=== PATIENT | female | born 1965 | race Caucasian/White ===

== ENCOUNTER 2017-04-18 21:18 | Emergency (ER) | payer SELFPAY ==
[2017-04-18] MEDS ORDERED: BUPIVACAINE 0.25% 50 ML VIAL. (21:33)
[2017-04-18] MEDS: BUPIVACAINE MPF 0.25% 10 ML VIAL. IJ (21:36)
[2017-04-18] MEDS ORDERED: diphenhydrAMINE HCL 25 MG CAPSULE PO (22:00)
== END 2017-04-18 22:11 | disposition home or self-care (01) ==
LOC: ER 21:18
DX: S02.5XXA Fracture of tooth (traumatic), initial encounter for closed fracture (principal); E11.9 Type 2 diabetes mellitus without complications; E78.00 Pure hypercholesterolemia, unspecified; G89.29 Other chronic pain; I10 Essential (primary) hypertension; Z90.710 Acquired absence of both cervix and uterus; Z88.1 Allergy status to other antibiotic agents; Z88.6 Allergy status to analgesic agent; Z88.7 Allergy status to serum and vaccine; Z91.041 Radiographic dye allergy status; Z88.8 Allergy status to other drugs, medicaments and biological substances; X58.XXXA Exposure to other specified factors, initial encounter; Y93.89 Activity, other specified; Y92.89 Other specified places as the place of occurrence of the external cause; Y99.8 Other external cause status
CPT/HCPCS: 64400; 99284-25; J3490

== ENCOUNTER 2018-03-27 10:39 | Emergency (ER) | payer SELFPAY ==
[~2018-03-27] VITALS: Ht 167.6 cm; Wt 81.6 kg
[~2018-03-27 10:39] MED LIST: CLIN300C8 PO; HYDR-3164 PO; OXYC1TAB15 PO
--- NOTE | 2018-03-27 13:08 | PHYS DOC ---
Past Medical History Past Medical History: Diabetes-Type II, High Cholesterol Additional Past Medical Histor: chronic back pain Past Surgical History: Hysterectomy, Other Additional Past Surgical Histo: ORAL RECONSTRUCTION FOR PALATE Alcohol Use: Rarely Drug Use: None Adult General Chief Complaint Chief Complaint: DENTAL PROBLEM HPI HPI 53-year-old female presents to ER via POV with complaints of right lower dental pain with facial swelling which started yesterday. She reports history of diabetes and states her blood sugar has been reading high on her glucometer. Patient states she has had polydipsia and polyuria. Patient denies any vomiting episodes, fever, chest pain, or palpitations. Due to financial issues she has been unable to get her medications or see a doctor. She reports she does have insulin but has been out of her metformin. Review of Systems Review of Systems Constitutional: Denies fever or chills [] Eyes: Denies change in visual acuity, redness, or eye pain [] HENT: Denies nasal congestion or sore throat. Reports rt lower dental pain w/ gum and facial swelling- denies difficulty swallowing Respiratory: Denies cough or shortness of breath [] Cardiovascular: Denies CP/palpitations GI: Denies abdominal pain, nausea, vomiting, bloody stools or diarrhea [] : Denies dysuria or hematuria [] Musculoskeletal: Denies back/neck pain or joint pain [] Integument: Denies rash or skin lesions [] Neurologic: Denies headache, focal weakness or sensory changes [] Endocrine: Reports polyuria or polydipsia [] All other systems were reviewed and found to be within normal limits, except as documented in this note. Current Medications Current Medications Current Medications Medications (Trade) Dose Ordered Sig/Jaleel Start Time Stop Time Status Last Admin Dose Admin Acetaminophen/ Hydrocodone Bitart (Lortab 5/325) 1 tab 1X ONCE 03/27/18 14:30 03/27/18 14:31 DC 03/27/18 15:08 1 TAB Ceftriaxone Sodium (Rocephin) 1 gm 1X ONCE 03/27/18 15:30 03/27/18 15:32 DC Insulin Human Regular (HumuLIN R VIAL) 10 unit 1X ONCE 03/27/18 14:00 03/27/18 14:05 DC 03/27/18 15:09 10 UNIT Sodium Chloride 1,000 ml @ 1,000 mls/hr 1X ONCE 03/27/18 15:15 03/27/18 16:14 DC 03/27/18 15:19 1,000 MLS/HR Allergies Allergies Allergies Coded Allergies Type Severity Reaction Last Updated Verified amoxicillin Allergy Intermediate 04/18/17 Yes aspirin Allergy Intermediate 04/21/16 Yes hepatitis B virus vaccine Allergy Intermediate 04/18/17 Yes pseudoephedrine Allergy Intermediate 04/18/17 Yes yellow dye Allergy Intermediate 04/18/17 Yes Physical Exam Physical Exam Constitutional: Well developed, well nourished, no acute distress, non-toxic appearance. [] HENT: Normocephalic, atraumatic, bilateral ears normal, oropharynx moist- multiple teeth have been extracted- none recently. Pt has multiple broken teeth. Rt side front gum swelling/erythema with swelling surrounding 2 broken teeth- no abscess. Lower palate soft with no palp. abscess. Canker sore rt lower gum line- no bleeding. Rt lower facial swelling along rt lower jaw- no crepitus or popping in jaw with opening/closing. Pt is able to fully open mouth. Clear speech. No pharyngeal swelling/erythema or difficulty swallowing. No gross adenopathy. Nose normal. [] Eyes: 3mm PERRLA, no nystagmus, conjunctiva normal, no discharge. [] Neck: Normal range of motion, no tenderness, supple, no stridor. [] Cardiovascular:Heart rate regular rhythm, no murmur [] Lungs & Thorax: Bilateral breath sounds clear to auscultation. Resp. equal/ nonlabored Abdomen: Bowel sounds normal, soft, no tenderness Skin: Warm, dry, no erythema, no rash. [] Back: No tenderness, no CVA tenderness. [] Extremities: No tenderness, no cyanosis, no clubbing, ROM intact, no edema. [] Neurologic: Alert and oriented X 3, normal motor function, normal sensory function, no focal deficits noted. [] Psychologic: Affect normal, judgement normal, mood normal. [] Current Patient Data Vital Signs Vital Signs Date Time Temp Pulse Resp B/P (MAP) Pulse Ox O2 Delivery O2 Flow Rate FiO2 03/27/18 16:30 82 20 149/88 (108) 99 03/27/18 15:08 Room Air 03/27/18 12:46 97.7 97.7 Lab Values Laboratory Tests Test 03/27/18 13:31 03/27/18 13:34 03/27/18 14:05 03/27/18 14:25 Glucose (Fingerstick) 539 mg/dL (70-99) *H Urine Collection Type Unknown Urine Color Yellow Urine Clarity Clear Urine pH 5.5 Urine Specific [place] >=1.030 Urine Protein Negative mg/dL (NEG-TRACE) Urine Glucose (UA) >=1000 mg/dL (NEG) Urine Ketones (Stick) 15 mg/dL (NEG) Urine Blood Negative (NEG) Urine Nitrite Negative (NEG) Urine Bilirubin Negative (NEG) Urine Urobilinogen Dipstick 0.2 mg/dL (0.2 mg/dL) Urine Leukocyte Esterase Negative (NEG) Urine RBC 0 /HPF (0-2) Urine WBC 0 /HPF (0-4) Urine Squamous Epithelial Cells Few /LPF Urine Bacteria Few /HPF (0-FEW) Urine Yeast Present /HPF White Blood Count 12.0 x10^3/uL (4.0-11.0) H Red Blood Count 4.77 x10^6/uL (3.50-5.40) Hemoglobin 15.1 g/dL (12.0-15.5) Hematocrit 42.9 % (36.0-47.0) Mean Corpuscular Volume 90 fL (79-100) Mean Corpuscular Hemoglobin 32 pg (25-35) Mean Corpuscular Hemoglobin Concent 35 g/dL (31-37) Red Cell Distribution Width 12.5 % (11.5-14.5) Platelet Count 460 x10^3/uL (140-400) H Neutrophils (%) (Auto) 74 % (31-73) H Lymphocytes (%) (Auto) 18 % (24-48) L Monocytes (%) (Auto) 6 % (0-9) Eosinophils (%) (Auto) 1 % (0-3) Basophils (%) (Auto) 1 % (0-3) Neutrophils # (Auto) 8.9 x10^3uL (1.8-7.7) H Lymphocytes # (Auto) 2.2 x10^3/uL (1.0-4.8) Monocytes # (Auto) 0.7 x10^3/uL (0.0-1.1) Eosinophils # (Auto) 0.1 x10^3/uL (0.0-0.7) Basophils # (Auto) 0.1 x10^3/uL (0.0-0.2) Sodium Level 132 mmol/L (136-145) L Potassium Level 4.3 mmol/L (3.5-5.1) Chloride Level 94 mmol/L (98-107) L Carbon Dioxide Level 27 mmol/L (21-32) Anion Gap 11 (6-14) Blood Urea Nitrogen 15 mg/dL (7-20) Creatinine 1.0 mg/dL (0.6-1.0) Estimated GFR (Cockcroft-Gault) 58.5 Glucose Level 534 mg/dL (70-99) *H Calcium Level 10.1 mg/dL (8.5-10.1) Test 03/27/18 15:24 03/27/18 16:20 Glucose (Fingerstick) 399 mg/dL (70-99) H 333 mg/dL (70-99) H Laboratory Tests 03/27/18 14:05 Laboratory Tests 03/27/18 14:25 EKG EKG [] Radiology/Procedures Radiology/Procedures [] Course & Med Decision Making Course & Med Decision Making Pertinent Labs and Imaging studies reviewed. (See chart for details) Patient was evaluated in the ER for complaints of right lower dental pain with facial swelling. Patient was afebrile. Patient reported during initial exam that her blood sugars have been reading high at home and she has been out of her metformin. Patient was found to have Accu-Chek of 539 therefore labs and treatments were provided while in the ER. 1600: Last check blood sugar was 399 patient receiving second liter of IV fluids. Patient was evaluated in the ER for right lower dental pain with facial swelling and was found to have blood sugar 539 on initial Accu-Chek. Patient had labs drawn showing blood glucose 534; WBCs 12.0 no bands; anion gap 11 with UA showing 15 ketones. Patient reports following fluids and IV insulin she is feeling much better than at time of arrival. Patient remains nontoxic in appearance and in no visible distress at this time. Discussed importance of maintenance of her diabetes as patient had been in ICU last month for DKA. Will provide community clinic and physician information with discharge paperwork area will provide prescription for clindamycin and [place] tablets for pain. Patient asked for prescription for metformin as she has been out of February. Patient takes 1000 mg twice a day of the metformin- will provide her with Rx. Education provided on s&s to return to ER for and discharge instructions were discussed. Pt's case and plan of care was discussed with Dr. Kinney. Silvano Disclaimer Silvano Disclaimer This electronic medical record was generated, in whole or in part, using a voice recognition dictation system. Departure Departure Impression: Primary Impression: Dental infection Additional Impression: Hyperglycemia Disposition: HOME, SELF-CARE Condition: STABLE Referrals: JOE DELGADO MD (PCP) Patient Instructions: Dental Caries, Hyperglycemia Additional Instructions: Drink plenty of fluids. Closely monitor your blood sugar and keep a diary. It is important for you to follow-up with her primary care physician for ongoing care and further follow-up on your diabetes. You will need to follow-up with a dentist for further care regarding your dental infection. Scripts Metformin Hcl (METFORMIN HCL) 500 Mg Tablet 1000 MG PO BIDWMEALS for ANTI-DIABETIC, #40 TAB 0 Refills Prov: KIMBER PRIEST APRN 03/27/18 Clindamycin Hcl (CLINDAMYCIN HCL) 150 Mg Capsule 450 MG PO TID for 10 Days, #90 CAP 0 Refills Prov: KIMBER PRIEST APRN 03/27/18 Hydrocodone/Apap 5-325 (NORCO 5-325 TABLET) 1 Each Tablet 1 TAB PO PRN Q6HRS PRN for PAIN, #6 TAB 0 Refills Prov: KIMBER PRIEST APRN 03/27/18 Problem Qualifiers KIMBER PRIEST APRN Mar 27, 2018 13:08
[2018-03-27] MEDS ORDERED: INSULIN REGULAR 100 UNIT/ML 3ML VIAL. IV ONE (14:00)
[2018-03-27] MEDS ORDERED: IV NORMAL SALINE 1000ML BAG 1,000 ML IV ONE ×2 (14:00→15:15)
[2018-03-27 14:04] LABS: BILIRUBIN,URINE NEGATIVE (NEG); CLARITY,URINE CLEAR; COLOR,URINE YELLOW; NITRITE,URINE NEGATIVE (NEG); PH,URINE 5.5; PROTEIN,URINE NEGATIVE (NEG-TRACE); UROBILINOGEN,URINE 0.2 mg/dL (0.2 mg/dL)
[2018-03-27 14:13] LABS: BASO # 0.1 x10^3/uL (0.0-0.2); BASO % 1 % (0-3); EOS # 0.1 x10^3/uL (0.0-0.7); EOS % 1 % (0-3); HEMATOCRIT 42.9 % (36.0-47.0); HEMOGLOBIN 15.1 g/dL (12.0-15.5); LYMPH # 2.2 x10^3/uL (1.0-4.8); LYMPH % 18 % (24-48); MEAN CORPUSCULAR HEMOGLOBIN 32 pg (25-35); MEAN CORPUSCULAR HGB CONC 35 g/dL (31-37); MEAN CORPUSCULAR VOLUME 90 fL (79-100); MONO # 0.7 x10^3/uL (0.0-1.1); MONO % 6 % (0-9); NEUT # 8.9 x10^3uL (1.8-7.7); NEUT % 74 % (31-73); PLATELET COUNT 460 x10^3/uL (140-400); RED BLOOD COUNT 4.77 x10^6/uL (3.50-5.40); RED CELL DISTRIBUTION WIDTH 12.5 % (11.5-14.5)
[2018-03-27 14:20] LABS: BACTERIA,URINE FEW /HPF (0-FEW); RBC,URINE 0 /HPF (0-2); SQUAMOUS EPITHELIAL CELL,UR FEW /LPF; WBC,URINE 0 /HPF (0-4); YEAST,URINE PRESENT /HPF
[2018-03-27] MEDS ORDERED: HYDROcodone/APAP 5/325MG 1 TAB TABLET PO ONE (14:30)
[2018-03-27 14:53] LABS: CALCIUM 10.1 mg/dL (8.5-10.1); GFR 58.5; POTASSIUM 4.3 mmol/L (3.5-5.1)
[2018-03-27] MEDS ORDERED: cefTRIAXone IV Push 1 GM VIAL. IVP ONE (15:30)
[2018-03-27] MEDS ORDERED: HYDR-3164 PO (16:12)
[2018-03-27] MEDS ORDERED: METF500T16 PO (16:12)
[2018-03-27] MEDS ORDERED: CLIN150C14 PO (16:12)
[2018-03-27 16:30] VITALS: BP 149/88
== END 2018-03-27 16:32 | disposition home or self-care (01) ==
LOC: ER 10:39
DX: K04.7 Periapical abscess without sinus (principal); E11.65 Type 2 diabetes mellitus with hyperglycemia; E78.00 Pure hypercholesterolemia, unspecified; G89.29 Other chronic pain; M54.89 Other dorsalgia; Z88.1 Allergy status to other antibiotic agents; Z88.6 Allergy status to analgesic agent; Z88.8 Allergy status to other drugs, medicaments and biological substances; Z91.041 Radiographic dye allergy status
CPT/HCPCS: 36415; 80048; 81001; 82962; 85025; 96361; 96374; 99283; J1815; J7030

== ENCOUNTER 2018-12-09 21:49 | Emergency (ER) | payer SELFPAY ==
[~2018-12-09] VITALS: Ht 167.6 cm; Wt 77.1 kg
[~2018-12-09 21:49] MED LIST changes: +CLIN150C14 PO; +METF500T16 PO
[2018-12-09 21:50] VITALS: BP 198/112
[2018-12-09] MEDS ORDERED: CLIN150C14 PO (22:19)
--- NOTE | 2018-12-09 22:24 | PHYS DOC ---
Past Medical History Past Medical History: Diabetes-Type II, High Cholesterol Additional Past Medical Histor: chronic back pain Past Surgical History: Hysterectomy, Other Additional Past Surgical Histo: ORAL RECONSTRUCTION FOR PALATE Alcohol Use: None Drug Use: None Adult General Chief Complaint Chief Complaint: DENTAL PROBLEM HPI HPI Patient is a 53 year old female who presents to the emergency department with c omplaints of bilateral lower dental pain with multiple infected dental caries. Patient states she took her prescription for clindamycin to [facility] today but was unable to afford it. She reports that she's been taking ibuprofen or naproxen as needed for the pain. She denies any fever, nausea, vomiting, cough, shortness of breath, wheezing, sore throat, ear pain, or neck pain. She denies any abdominal pain or other complaints. She currently rates her pain a 9 out of 10 on the pain scale, there are no alleviating or exacerbating factors.All other ROS is neg unless otherwise noted in HPI. Review of Systems Review of Systems See above Allergies Allergies Allergies Coded Allergies Type Severity Reaction Last Updated Verified amoxicillin Allergy Intermediate 04/18/17 Yes aspirin Allergy Intermediate 04/21/16 Yes hepatitis B virus vaccine Allergy Intermediate 04/18/17 Yes pseudoephedrine Allergy Intermediate 04/18/17 Yes yellow dye Allergy Intermediate 04/18/17 Yes Physical Exam Physical Exam Constitutional: Well developed, well nourished, no acute distress, non-toxic appearance. [] HENT: Normocephalic, atraumatic, bilateral external ears normal, oropharynx moist, no oral exudates, nose normal; diffuse lower dental decay with multiple broken teeth, no visible abscess.[] Eyes: PERRLA, EOMI, conjunctiva normal, no discharge. [] Neck: Normal range of motion, no tenderness, no stridor. [] Cardiovascular:Heart rate regular rhythm, no murmur [] Lungs & Thorax: Bilateral breath sounds clear to auscultation [] Skin: Warm, dry, no erythema, no rash. [] Back: No tenderness Extremities: No cyanosis, ROM intact, no edema. [] Neurologic: Alert and oriented X 3, no focal deficits noted. [] Psychologic: Affect normal, judgement normal, mood normal. [] Current Patient Data Vital Signs Vital Signs Date Time Temp Pulse Resp B/P (MAP) Pulse Ox O2 Delivery O2 Flow Rate FiO2 12/09/18 21:50 97.6 79 18 198/112 (140) 99 Room Air 97.6 EKG EKG [] Radiology/Procedures Radiology/Procedures [] Course & Med Decision Making Course & Med Decision Making Pertinent Labs and Imaging studies reviewed. (See chart for details) dx: Infected dental caries, dentalgia Patient was given 450 mg of clindamycin here in the emergency department. She was given information for did Rx and recommended the patient go fill the medication tomorrow at pressure chart for aware the co-pays less than $20. Continue taking 2 naproxen twice a day with food as needed for pain, do not take ibuprofen and naproxen at the same time. Follow-up with the dental list provided return to the ER symptoms worsen. Patient verbalized an understanding of home care, medications, follow-up, and return to ED instructions and was in agreement with the plan of care. [] Dragon Disclaimer Dragon Disclaimer This electronic medical record was generated, in whole or in part, using a voice recognition dictation system. Departure Departure Impression: Primary Impression: Dental infection Disposition: 01 HOME, SELF-CARE Condition: STABLE Referrals: JOE DELGADO MD (PCP) Patient Instructions: Dental Caries Additional Instructions: Fill prescription(s) and use as directed. Follow up with dentist using the referral list provided. Return to the ER if symptoms worsen. Scripts Clindamycin Hcl (CLINDAMYCIN HCL) 150 Mg Capsule 450 MG PO TID for 7 Days, #63 CAP 0 Refills Prov: JULIANA LINARES APRN 12/09/18 JULIANA LINARES APRN Dec 09, 2018 22:24
[2018-12-09] MEDS ORDERED: CLINDAMYCIN HCL 150 MG CAPSULE. PO ONE (23:00)
== END 2018-12-09 22:30 | disposition home or self-care (01) ==
LOC: ER 21:49
DX: K04.7 Periapical abscess without sinus (principal); E78.00 Pure hypercholesterolemia, unspecified; E11.9 Type 2 diabetes mellitus without complications; G89.29 Other chronic pain; Z88.1 Allergy status to other antibiotic agents; Z91.041 Radiographic dye allergy status; Z88.6 Allergy status to analgesic agent; Z88.8 Allergy status to other drugs, medicaments and biological substances; Z88.7 Allergy status to serum and vaccine
CPT/HCPCS: 99283

== ENCOUNTER 2019-04-11 20:45 | Emergency (ER) | payer SELFPAY ==
[~2019-04-11] VITALS: Ht 167.6 cm; Wt 73.5 kg
[~2019-04-11 20:45] MED LIST changes: +INSU100V8 SQ; +LACT1CAP19 PO; +LISI-130 PO; +LORA10TA65 PO; +RANI150C PO; +TRAM100T2 PO; +TRAZ-123 PO
[2019-04-11] MEDS ORDERED: INSULIN REGULAR 100 UNIT/ML 3ML VIAL. SQ ONE (21:15)
[2019-04-11] MEDS ORDERED: IV NORMAL SALINE 1000ML BAG 1,000 ML IV ONE ×2 (21:15)
[2019-04-11 21:22] LABS: BASO # 0.1 x10^3/uL (0.0-0.2); BASO % 1 % (0-3); EOS # 0.2 x10^3/uL (0.0-0.7); EOS % 2 % (0-3); HEMATOCRIT 40.3 % (36.0-47.0); HEMOGLOBIN 13.7 g/dL (12.0-15.5); LYMPH # 2.1 x10^3/uL (1.0-4.8); LYMPH % 25 % (24-48); MEAN CORPUSCULAR HEMOGLOBIN 30 pg (25-35); MEAN CORPUSCULAR HGB CONC 34 g/dL (31-37); MEAN CORPUSCULAR VOLUME 89 fL (79-100); MONO # 0.4 x10^3/uL (0.0-1.1); MONO % 5 % (0-9); NEUT # 5.5 x10^3/uL (1.8-7.7); NEUT % 67 % (31-73); PLATELET COUNT 280 x10^3/uL (140-400); RED BLOOD COUNT 4.51 x10^6/uL (3.50-5.40); RED CELL DISTRIBUTION WIDTH 13.1 % (11.5-14.5); WHITE BLOOD COUNT 8.3 x10^3/uL (4.0-11.0)
--- NOTE | 2019-04-11 21:32 | PHYS DOC ---
Past Medical History Past Medical History: Diabetes-Type II, High Cholesterol Additional Past Medical Histor: chronic back pain Past Surgical History: Hysterectomy, Other Additional Past Surgical Histo: ORAL RECONSTRUCTION FOR PALATE Alcohol Use: Rarely Drug Use: None Adult General Chief Complaint Chief Complaint: HYPERGLYCEMIA HPI HPI patient is a 54 year old female with history of insulin-dependent type 2 diabetes who presents with early controlled diabetes and dizziness while at work. Patient states she has not been taking her Lantus due to lack of needles. She is currently taking metformin 500 mg twice daily which is half of her prescribed dose. Patient is currently homeless living in her car while working at [employer]. This evening while at her, patient reports feeling lightheaded and dizzy upon climbing stairs. She felt as though h er blood sugar was low and had it checked by local EMS. Blood sugar was in the 500 range and patient was instructed to come to the ED. Denies headache, chest pain palpitations, shortness breath abdominal pain nausea vomiting. No other acute symptoms or complaints. Review of Systems Review of Systems Review symptoms as per history of present illness. All other review symptoms are negative All other systems were reviewed and found to be within normal limits, except as documented in this note. Current Medications Current Medications Current Medications Medications (Trade) Dose Ordered Sig/Jaleel Start Time Stop Time Status Last Admin Dose Admin Dicyclomine HCl (Bentyl) 20 mg 1X ONCE 04/11/19 22:00 04/11/19 22:01 Cancel Insulin Human Regular (HumuLIN R VIAL) 10 unit 1X ONCE 04/11/19 21:15 04/11/19 21:16 DC 04/11/19 21:22 10 UNIT Sodium Chloride 1,000 ml @ 1,000 mls/hr 1X ONCE 04/11/19 21:15 04/11/19 22:14 DC 04/11/19 21:15 1,000 MLS/HR Allergies Allergies Allergies Coded Allergies Type Severity Reaction Last Updated Verified amoxicillin Allergy Intermediate 04/18/17 Yes aspirin Allergy Intermediate 04/21/16 Yes hepatitis B virus vaccine Allergy Intermediate 04/18/17 Yes pseudoephedrine Allergy Intermediate 04/18/17 Yes yellow dye Allergy Intermediate 04/18/17 Yes Physical Exam Physical Exam Constitutional: Well developed, well nourished, no acute distress, non-toxic appearance. [] HENT: Normocephalic, atraumatic, bilateral external ears normal, oropharynx moist, no oral exudates, nose normal. [] Eyes: PERRLA, EOMI, conjunctiva normal, no discharge. [] Neck: Normal range of motion, no tenderness. [] Cardiovascular:Heart rate regular rhythm, no murmur [] Lungs & Thorax: Bilateral breath sounds clear to auscultation [] Abdomen: Bowel sounds normal, soft, no tenderness. [] Skin: Warm, dry, no erythema, no rash. [] Back: No tenderness, no CVA tenderness. [] Extremities: No tenderness, no edema. [] Neurologic: Alert and oriented X 3, normal motor function, normal sensory function, no focal deficits noted. [] Psychologic: Affect normal, judgement normal, mood normal. [] Current Patient Data Vital Signs Vital Signs Date Time Temp Pulse Resp B/P (MAP) Pulse Ox O2 Delivery O2 Flow Rate FiO2 04/11/19 22:22 78 124/73 (90) 100 Room Air 04/11/19 21:09 97.8 20 97.8 Lab Values Laboratory Tests Test 04/11/19 20:54 04/11/19 21:12 04/11/19 22:40 Glucose (Fingerstick) 471 mg/dL (70-99) H 313 mg/dL (70-99) H White Blood Count 8.3 x10^3/uL (4.0-11.0) Red Blood Count 4.51 x10^6/uL (3.50-5.40) Hemoglobin 13.7 g/dL (12.0-15.5) Hematocrit 40.3 % (36.0-47.0) Mean Corpuscular Volume 89 fL (79-100) Mean Corpuscular Hemoglobin 30 pg (25-35) Mean Corpuscular Hemoglobin Concent 34 g/dL (31-37) Red Cell Distribution Width 13.1 % (11.5-14.5) Platelet Count 280 x10^3/uL (140-400) Neutrophils (%) (Auto) 67 % (31-73) Lymphocytes (%) (Auto) 25 % (24-48) Monocytes (%) (Auto) 5 % (0-9) Eosinophils (%) (Auto) 2 % (0-3) Basophils (%) (Auto) 1 % (0-3) Neutrophils # (Auto) 5.5 x10^3/uL (1.8-7.7) Lymphocytes # (Auto) 2.1 x10^3/uL (1.0-4.8) Monocytes # (Auto) 0.4 x10^3/uL (0.0-1.1) Eosinophils # (Auto) 0.2 x10^3/uL (0.0-0.7) Basophils # (Auto) 0.1 x10^3/uL (0.0-0.2) Sodium Level 135 mmol/L (136-145) L Potassium Level 4.3 mmol/L (3.5-5.1) Chloride Level 99 mmol/L (98-107) Carbon Dioxide Level 24 mmol/L (21-32) Anion Gap 12 (6-14) Blood Urea Nitrogen 29 mg/dL (7-20) H Creatinine 0.9 mg/dL (0.6-1.0) Estimated GFR (Cockcroft-Gault) 65.8 BUN/Creatinine Ratio 32 (6-20) H Glucose Level 469 mg/dL (70-99) H Calcium Level 9.6 mg/dL (8.5-10.1) Total Bilirubin 0.4 mg/dL (0.2-1.0) Aspartate Amino Transferase (AST) 21 U/L (15-37) Alanine Aminotransferase (ALT) 31 U/L (14-59) Alkaline Phosphatase 101 U/L (46-116) Total Protein 6.6 g/dL (6.4-8.2) Albumin 3.8 g/dL (3.4-5.0) Albumin/Globulin Ratio 1.4 (1.0-1.7) Acetone Level Neg (NEG) Laboratory Tests 04/11/19 21:12 Laboratory Tests 04/11/19 21:12 EKG EKG [] Radiology/Procedures Radiology/Procedures ] Course & Med Decision Making Course & Med Decision Making Pertinent Labs and Imaging studies reviewed. (See chart for details) [[IV fluids and subcutaneous insulin given with improved with glycemic control. Will discharge patient with prescription for Lantus illness with instructions to fill needle those upon leaving ED and take next dose of Lantus this evening. Resume Lantus as scheduled and follow-up with PCP later this week for reevalu ation.] Dragon Disclaimer Dragon Disclaimer This electronic medical record was generated, in whole or in part, using a voice recognition dictation system. Departure Departure Impression: Primary Impression: Hyperglycemia Additional Impressions: Dizziness H/O medication noncompliance Disposition: 01 HOME, SELF-CARE Condition: IMPROVED Referrals: JOE DELGADO MD (PCP) Patient Instructions: Hyperglycemia, [id number] Additional Instructions: Please fill prescription for Lantus levels upon leaving the emergency department and take 10 units of Lantus subcutaneously nightly. Follow-up with your PCP later this week for reevaluation and adjustment of diabetic medications. Return to the ED if new or concerning symptoms. Problem Qualifiers SUSY VALENTINO DO Apr 11, 2019 21:32
[2019-04-11 21:35] LABS: CALCIUM 9.6 mg/dL (8.5-10.1); CREATININE 0.9 mg/dL (0.6-1.0); GFR 65.8; POTASSIUM 4.3 mmol/L (3.5-5.1)
[2019-04-11 21:40] LABS: ALBUMIN 3.8 g/dL (3.4-5.0); ALBUMIN/GLOBULIN RATIO 1.4 (1.0-1.7); TOTAL BILIRUBIN 0.4 mg/dL (0.2-1.0); TOTAL PROTEIN 6.6 g/dL (6.4-8.2)
[2019-04-11] MEDS ORDERED: DICYCLOMINE 20 MG/2 ML AMPUL. IM ONE (22:00)
[2019-04-11 22:22] VITALS: BP 124/73
== END 2019-04-11 22:50 | disposition home or self-care (01) ==
LOC: ER 20:45
DX: E11.65 Type 2 diabetes mellitus with hyperglycemia (principal); R42 Dizziness and giddiness; Z91.19 Patient's noncompliance with other medical treatment and regimen; E78.00 Pure hypercholesterolemia, unspecified; G89.29 Other chronic pain; Z90.710 Acquired absence of both cervix and uterus; Z98.890 Other specified postprocedural states; Z79.4 Long term (current) use of insulin; Z88.1 Allergy status to other antibiotic agents; Z88.6 Allergy status to analgesic agent; Z88.7 Allergy status to serum and vaccine; Z88.8 Allergy status to other drugs, medicaments and biological substances; Z91.041 Radiographic dye allergy status
CPT/HCPCS: 36415; 80053; 82010; 82962; 85025; 96360; 96372; 99284; J1815; J7030

== ENCOUNTER 2021-03-27 20:57 | Emergency (ER) | payer BC, OTHER ==
[~2021-03-27] VITALS: Ht 167.6 cm; Wt 91.4 kg
[~2021-03-27 20:57] MED LIST changes: +CLIN-94 PO; -CLIN150C14 PO; +CLIN150C16 PO; -CLIN300C8 PO
--- NOTE | 2021-03-27 21:21 | PHYS DOC ---
Past Medical History Past Medical History: Diabetes-Type II, High Cholesterol Additional Past Medical Histor: chronic back pain (SHYLA MENDENHALL APRN) Past Surgical History: Hysterectomy, Other Additional Past Surgical Histo: ORAL RECONSTRUCTION FOR PALATE (SHYLA MENDENHALL APRN) Smoking Status: Never Smoker Alcohol Use: Rarely Drug Use: None (SHYLA MENDENHALL APRN) General Adult EDM: Chief Complaint: SHORTNESS OF BREATH HPI: HPI: Patient is a 56-year-old female who presents to the emergency department today for shortness of breath that started 25 minutes prior to arrival. She states that she feels like her throat is swollen. She states that she had one episode of vomiting after she smelled something bad but had nausea all day. She reports burning in her throat. She has a history of asthma and uses inhalers at home. Patient has a history of anxiety and has been out of her medications for 2 weeks. Patient is visibly anxious. Patient denies any fevers, choking or difficulty eating, cough, diarrhea, loss of taste or smell, chest pain. (SHYLA MENDENHALL APRN) Review of Systems: Review of Systems: 14 body systems of the review of systems have been reviewed. See HPI for pertinent positive and negative responses, otherwise all other systems are negative, nonpertinent or noncontributory (SHYLA MENDENHALL APRN) Heart Score: C/O Chest Pain: No Risk Factors: Risk Factors: DM, Current or recent (<one month) smoker, HTN, HLP, family history of CAD, obesity. Risk Scores: Score 0 - 3: 2.5% MACE over next 6 weeks - Discharge Home Score 4 - 6: 20.3% MACE over next 6 weeks - Admit for Clinical Observation Score 7 - 10: 72.7% MACE over next 6 weeks - Early Invasive Strategies (SHYLA MENDENHALL APRN) Allergies: Allergies: Allergies Coded Allergies Type Severity Reaction Last Updated Verified amoxicillin Allergy Intermediate 04/18/17 Yes aspirin Allergy Intermediate 04/21/16 Yes hepatitis B virus vaccine Allergy Intermediate 04/18/17 Yes pseudoephedrine Allergy Intermediate 04/18/17 Yes yellow dye Allergy Intermediate 04/18/17 Yes (SHYLA MENDENHALL APRN) Physical Exam: PE: Constitutional: Well developed, well nourished, no acute distress, non-toxic appearance. [] HENT: Normocephalic, atraumatic, bilateral external ears normal, no oropharyngeal edema, uvula midline, no trismus, no phonation changes, patient maintaining secretions, oropharynx moist, no oral exudates, nose normal. [] Eyes: PERRL, EOMI, conjunctiva normal, no discharge. [] Neck: Normal range of motion, no tenderness, supple, no stridor. [] Cardiovascular:Heart rate regular rhythm, no murmur [] Lungs & Thorax: Bilateral breath sounds clear to auscultation [] Abdomen: Bowel sounds normal, soft, no tenderness, no masses, no pulsatile masses. [] Skin: Warm, dry, no erythema, no rash. [] Back: Normal range of motion Extremities: No tenderness, no cyanosis, no clubbing, ROM intact, no edema. [] Neurologic: Alert and oriented X 3, normal motor function, normal sensory function, no focal deficits noted. [] Psychologic: Affect normal, judgement normal, mood normal. [] (SHYLA MENDENHALL APRN) EKG: EKG: [] (SHYLA MENDENHALL APRN) Radiology/Procedures: Radiology/Procedures: []PROCEDURE: PORTABLE CHEST 1V Exam: Chest one view INDICATION: Short of air TECHNIQUE: Frontal view of the chest Comparisons: 02/17/2019 FINDINGS: The cardiomediastinal silhouette and pulmonary vessels are within normal limits. The lung and pleural spaces are clear. IMPRESSION: No acute cardiopulmonary process. Electronically signed by: Kyler Cowan MD (03/27/2021 9:46 PM) [facility] DICTATED and SIGNED BY: KYLER COWAN MD DATE: 03/27/21 [id number] (SHYLA MENDENHALL APRN) Course & Med Decision Making: Course & Med Decision Making Pertinent Labs and Imaging studies reviewed. (See chart for details) [] Patient presents to the emergency department for shortness of breath that started 25 minutes ago. Patient reports that she smelled something bad and had an episode of vomiting, following that episode of vomiting she states that she feels a burning sensation in her throat and feels like it is swollen. Patient reports that she took promethazine for her nausea. She reports burning sensation in her throat. Patient states that she was not choking on anything or eating anything when her symptoms started. Patient does have a history of anxiety and has been out of her medications for 2 weeks. Due to patient's complaint of shortness of breath, chest x-ray was performed that showed no acute findings. Due to her Covid symptoms, she will be tested for Covid and influenza. Rapid influenza test was negative. Patient be notified of Covid results when they become available in approximately 1 to 2 days. She is advised to self isolate until she receives these results. Patient's burning sensation in her throat was treated with a GI cocktail. Patient was able to tolerate oral intake. She reports improvement in her burning in her throat following treatment. Patient does not have any oropharyngeal edema. She is maintaining her secretions. Patient advised to continue taking her medications for nausea as previously prescribed. I discussed with patient all findings and diagnostic testing as well as the need to follow-up with PCP for further evaluation and treatment or return to the ER if any new or worsening symptoms. Strict return precautions were also discussed at length. Patient voiced understanding and agreement with the plan. Patient is hemodynamically stable at the time of disposition. (SHYLA MENDENHALL APRN) Course & Med Decision Making Patients Care and treatment plan provided by ER Nurse Practitioner. I was available for consult. Patient's chart reviewed. (BETH MERRITT DO) Dragon Disclaimer: Dragon Disclaimer: This electronic medical record was generated, in whole or in part, using a voice recognition dictation system. (SHYLA MENDENHALL APRN) Departure Departure Impression: Primary Impression: Person under investigation for COVID-19 Additional Impression: Throat burning Disposition: 01 HOME / SELF CARE / HOMELESS Condition: GOOD Referrals: JOE DELGADO MD (PCP) Patient Instructions: Nausea and Vomiting Additional Instructions: You were seen in the emergency department today for sore throat and shortness of breath. You are tested for influenza and it was negative. Your chest x-ray showed no acute findings. We also tested you for COVID-19 and it is pending at this time, you will be notified of your results when they become available in a pproximately 1 to 2 days. Please self isolate until you receive these results. Your burning in your throat is likely due to your episode of vomiting and this was treated with a GI cocktail. Please continue to take your nausea medication as previously prescribed. Please contact your primary care provider regarding a refill for your anxiety medications. If you develop shortness of breath, use your inhaler as needed. Please follow-up with your primary care provider tomorrow regarding your ER visit. Return to the emergency department if you develop worsening of your shortness of breath, chest pain, difficulty swallowing or secretions, high fevers refractory to treatment, intractable nausea or vomiting. SHYLA MENDENHALL APRN Mar 27, 2021 21:21 BETH MERRITT DO Mar 28, 2021 06:07
[2021-03-27] MEDS ORDERED: LIDO:MAALOX 1:1 20 ML SINGLE DOSE. SWSW ONE (21:30)
[2021-03-27 21:42] VITALS: BP 123/74
--- NOTE | 2021-03-27 21:48 | RAD ---
Exam: Chest one view INDICATION: Short of air TECHNIQUE: Frontal view of the chest Comparisons: 02/17/2019 FINDINGS: The cardiomediastinal silhouette and pulmonary vessels are within normal limits. The lung and pleural spaces are clear. IMPRESSION: No acute cardiopulmonary process. Electronically signed by: Kyler Mills MD (03/27/2021 9:46 PM) [facility]
[2021-03-27 21:53] LABS: INFLUENZA A PATIENT NEGATIVE (NEGATIVE); INFLUENZA B PATIENT NEGATIVE (NEGATIVE)
--- NOTE | 2021-03-28 01:53 | EKG ---
[facility] [address] [place] [address] Test Date: 2021-03-27 Test Time: 21:10:34 Pat Name: MITZI BUSH Department: Room: Gender: F Campaign Manager: : 1965 Requested By: BETH MERRITT Order Number: [id number] Reading MD: Lazaro Winn Measurements Intervals [place] Rate: 92 P: 0 VA: 196 QRS: -34 QRSD: 74 T: 12 QT: 348 QTc: 435 Interpretive Statements SINUS RHYTHM ABNORMAL LEFT AXIS DEVIATION QRS(T) CONTOUR ABNORMALITY CONSIDER ANTEROSEPTAL MYOCARDIAL DAMAGE CONSISTENT WITH INFERIOR INFARCT PROBABLY OLD ABNORMAL ECG RI6.01 No previous ECG available for comparison Electronically Signed On 03-31-2021 12:19:20 [employer] by Lazaro Winn
--- NOTE | 2021-03-28 16:56 | NUR ---
IP: Informed pt of negative covid test. Pt verbalized understanding.
== END 2021-03-27 22:10 | disposition home or self-care (01) ==
LOC: ER 21:53
DX: R07.0 Pain in throat (principal); R06.02 Shortness of breath; R11.10 Vomiting, unspecified; E11.9 Type 2 diabetes mellitus without complications; E78.00 Pure hypercholesterolemia, unspecified; G89.29 Other chronic pain; Z90.710 Acquired absence of both cervix and uterus
CPT/HCPCS: 71045; 87804; 99285; U0003; U0005; 93005

== ENCOUNTER 2021-04-22 14:41 | Emergency (ER) | payer OTHER ==
[~2021-04-22] VITALS: Ht 167.6 cm; Wt 86.3 kg
--- NOTE | 2021-04-22 15:04 | PHYS DOC ---
Past Medical History Past Medical History: Diabetes-Type II, High Cholesterol Additional Past Medical Histor: chronic back pain Past Surgical History: Hysterectomy, Tonsillectomy, Other Additional Past Surgical Histo: ORAL RECONSTRUCTION FOR PALATE, BILAT EYE CATARACT SX Smoking Status: Never Smoker Alcohol Use: Rarely Drug Use: None General Adult EDM: Chief Complaint: BACK PAIN OR INJURY HPI: HPI: Patient is a 56 year old female with a history of diabetes type 2, high cholesterol, chronic low back pain on hydrocodone, who presents to the ED today complaining of moderate bilateral low back pain, symptoms began today after she lifted her roommate off the floor. Patient states her roommate has chronic health issues and has frequent falls. Today she fell down and she tried lifting her up (instead of calling 911 for lift assist). She states she heard a snap sound from her back. She states she was able to get up and walk after that. She states she took her hydrocodone with minimal improvement but would like to be checked out to make sure there is nothing wrong with her back. Patient states the pain radiates to the left lower extremity, denies any numbness or tingling to bilateral lower extremities. Denies any loss of bowel/bladder function. States her pain is worse on certain movements. Review of Systems: Review of Systems: Constitutional: Denies fever or chills. [] Eyes: Denies change in visual acuity. [] HENT: Denies nasal congestion or sore throat. [] Respiratory: Denies cough or shortness of breath. [] Cardiovascular: Denies chest pain or edema. [] GI: Denies abdominal pain, nausea, vomiting, bloody stools or diarrhea. [] : Denies dysuria. [] Musculoskeletal: Reports low back pain Integument: Denies rash. [] Neurologic: Denies headache, focal weakness or sensory changes. [] Psychiatric: Denies depression or anxiety. [] Heart Score: C/O Chest Pain: N/A Risk Factors: Risk Factors: DM, Current or recent (<one month) smoker, HTN, HLP, family history of CAD, obesity. Risk Scores: Score 0 - 3: 2.5% MACE over next 6 weeks - Discharge Home Score 4 - 6: 20.3% MACE over next 6 weeks - Admit for Clinical Observation Score 7 - 10: 72.7% MACE over next 6 weeks - Early Invasive Strategies Allergies: Allergies: Allergies Coded Allergies Type Severity Reaction Last Updated Verified amoxicillin Allergy Intermediate 04/18/17 Yes aspirin Allergy Intermediate 04/21/16 Yes hepatitis B virus vaccine Allergy Intermediate 04/18/17 Yes pseudoephedrine Allergy Intermediate 04/18/17 Yes yellow dye Allergy Intermediate 04/18/17 Yes Physical Exam: PE: Constitutional: Well developed, well nourished, no acute distress, non-toxic appearance. [] HENT: Normocephalic, atraumatic, bilateral external ears normal, oropharynx moist, no oral exudates, nose normal. [] Eyes: PERRLA, EOMI, conjunctiva normal, no discharge. [] Neck: Normal range of motion, no tenderness, supple, no stridor. [] Cardiovascular:Heart rate regular rhythm, no murmur [] Lungs & Thorax: Bilateral breath sounds clear to auscultation [] Abdomen: Bowel sounds normal, soft, no tenderness, no masses, no pulsatile masses. [] Skin: Warm, dry, no erythema, no rash. [] Back: Diffuse paraspinal muscle tenderness bilateral lumbar spine with mild midline lumbar spine tenderness, no CVA tenderness. Positive straight leg raise to the left, negative straight raise leg to the right Extremities: No tenderness, no cyanosis, no clubbing, ROM intact, no edema. [] Neurologic: Alert and oriented X 3, normal motor function, normal sensory function, no focal deficits noted. [] Psychologic: Affect normal, judgement normal, mood normal. [] EKG: EKG: [] Radiology/Procedures: Radiology/Procedures: []PROCEDURE: CT LUMBAR SPINE WO CONTRAST Study: CT lumbar spine without contrast INDICATION: Back pain. COMPARISON: No cross-sectional imaging of the lumbar spine is available for review. TECHNIQUE: Axial CT imaging of the lumbar spine performed without the use of intravenous contrast. One or more of the following individualized dose reduction techniques were ut ilized for this examination: 1. Automated exposure control 2. Adjustment of the mA and/or kV according to patient size 3. Use of iterative reconstruction technique. FINDINGS: Concavity at the superior and inferior endplates of L5. Irregular morphology of L5 suggesting a partial fusion anomaly. Anteriorly and eccentric to the right there is an obliquely oriented lucency propagating through the vertebral body. No significant prevertebral edema/hemorrhage. Superior endplate Schmorl's node at L3. No listhesis or disc space collapse. Chronic unilateral pars defect on the right at L5. Mild lower lumbar facet arthrosis greatest on the left at L4-L5 and L5-S1. Mild left eccentric disc bulge at L5-S1 as well as ligamentum flavum hypertrophy. Central canal stenosis estimated at no more than mild. Mild neural foraminal stenosis at L4-L5 and L5-S1. Heterogeneous renal mass on the left exophytic medially which contains macroscopic fat. This is measured at up to 3.7 x 3.9 x 4 cm. Splenic granulomas. Nodular foci along the ventral margin of the sacrum appear related to collateral veins. The left common iliac vein is small in caliber and appears to be compressed between the right common iliac artery and lumbar spine. IMPRESSION: 1. Obliquely oriented lucency at the anterior/right lateral corner of L5 could potentially represent a subtle fracture but there is no appreciable prevertebral edema/hemorrhage to help confirm. The L5 vertebral body itself exhibits an irregular morphology suggesting a partial fusion anomaly. Recommend correlation for pain localizing to L5. MRI could be performed to more definitively characterize as deemed clinically necessary. 2. Relatively mild degenerative changes mainly at L4-L5 and L5-S1. No evidence for significant central canal stenosis. 3. Left renal mass containing macroscopic fat measuring 3.7 x 3.9 x 4 cm. No associated calcifications. 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 Surgical consultation is recommended as AMLs this size can spontaneously hemorrhage. 4. Small caliber of the left common iliac vein which appears to be compressed between the lumbar spine and right common iliac artery. There are also ectatic collaterals along the ventral margin of the sacrum. The constellation of findings can be seen with chronic May-Thurner syndrome. Electronically signed by: CLAYTON AUSTIN MD (04/22/2021 3:47 PM) [facility] DICTATED and SIGNED BY: CLAYTON AUSTIN MD DATE: 04/22/21 [id number] Course & Med Decision Making: Course & Med Decision Making Pertinent Labs and Imaging studies reviewed. (See chart for details) This is a 56-year-old female patient presented to the ED today with low back pain, symptoms began after she lifted a friend off the ground. Patient has no cauda equina syndrome symptoms. CT of the lumbar spine interpreted by radiologist obliquely oriented lucency at the anterior/right lateral corner of L5 could potentially represent a subtle fracture but there is no appreciable prevertebral edema/hemorrhage to help confirm. The L5 vertebral body itself exhibits an irregular morphology suggesting a partial fusion anomaly. Recommend correlation for pain localizing to L5. MRI could be performed to more definitively characterize as deemed clinic ally necessary. Relatively mild degenerative changes mainly at L4-L5 and L5-S1. No evidence for significant central canal stenosis. Left renal mass containing macroscopic fat measuring 3.7 x 3.9 x 4 cm. No associated calcifications. 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 Surgical consultation is recommended as AMLs this size can spontaneously hemorrhage.Small caliber of the left common iliac vein which appears to be compressed between the lumbar spine and right common iliac artery. There are also ectatic collaterals along the ventral margin of the sacrum. The constellation of findings can be seen with chronic May-Thurner syndrome. Consulted with Dr. Adorno. Spoke with Radha GONSALVES for neurosurgery, she requested if patient is able to ambulate and pain is well controlled she can be discharged home and follow-up with their clinic. Patient ambulatory. F/u with nephrology for renal mass. Also discussed with patient importance of following up with the PCP for possible chronic May Thurner syndrome Dragon Disclaimer: Silvano Disclaimer: This electronic medical record was generated, in whole or in part, using a voice recognition dictation system. Departure Departure Impression: Primary Impression: L5 vertebral fracture Qualified Codes: S32.059A - Unspecified fracture of fifth lumbar vertebra, initial encounter for closed fracture Additional Impression: Renal mass, left Disposition: 01 HOME / SELF CARE / HOMELESS Condition: STABLE Referrals: JOE DELGADO MD (PCP) call the office tomorrow and set up a follow up appointment JOVANNA RINALDI MD call his office tomorrow and set a follow up appointment GILBERTO FERREIRA MD call his office tomorrow and set up a follow up appointment Patient Instructions: Lumbar Fracture Additional Instructions: You were evaluated in the emergency room and noted to have L5 fracture. Please follow-up with the provided neurosurgeon, contact the office tomorrow morning and set up a follow-up appointment. You also have a renal mass/kidney mass. Please contact the provided forming machine operator and set up a follow-up appointment. Please provide your PCP this CT results today and they can follow-up with the possible chronic May Thurner syndrome Scripts Hydrocodone Bit/Acetaminophen (HYDROCODONE-APAP 10325 ) 1 Tab Tablet 1 TAB PO PRN Q6HRS PRN for PAIN, #12 TAB 0 Refills Prov: MINERVA LESLIE APRN 04/22/21 MINERVA LESLIE APRN Apr 22, 2021 15:04
--- NOTE | 2021-04-22 15:50 | RAD ---
Study: CT lumbar spine without contrast INDICATION: Back pain. COMPARISON: No cross-sectional imaging of the lumbar spine is available for review. TECHNIQUE: Axial CT imaging of the lumbar spine performed without the use of intravenous contrast. One or more of the following individualized dose reduction techniques were utilized for this examinat ion: 1. Automated exposure control 2. Adjustment of the mA and/or kV according to patient size 3. Use of iterative reconstruction technique. FINDINGS: Concavity at the superior and inferior endplates of L5. Irregular morphology of L5 suggesting a parti al fusion anomaly. Anteriorly and eccentric to the right there is an obliquely oriented lucency propa gating through the vertebral body. No significant prevertebral edema/hemorrhage. Superior endplate Sc hmorl's node at L3. No listhesis or disc space collapse. Chronic unilateral pars defect on the right at L5. Mild lower lumbar facet arthrosis greatest on the left at L4-L5 and L5-S1. Mild left eccentric disc bulge at L5-S1 as well as ligamentum flavum hypertrophy. Central canal stenosis estimated at no more than mild. Mild neural foraminal stenosis at L4-L5 and L5-S1. Heterogeneous renal mass on the left exophytic medially which contains macroscopic fat. This is measu red at up to 3.7 x 3.9 x 4 cm. Splenic granulomas. Nodular foci along the ventral margin of the sacru m appear related to collateral veins. The left common iliac vein is small in caliber and appears to b e compressed between the right common iliac artery and lumbar spine. IMPRESSION: 1. Obliquely oriented lucency at the anterior/right lateral corner of L5 could potentially represent a subtle fracture but there is no appreciable prevertebral edema/hemorrhage to help confirm. The L5 vertebral body itself exhibits an irregular morphology suggesting a partial fusion anomaly. Recommend correlation for pain localizing to L5. MRI could be performed to more definitively characterize as d eemed clinically necessary. 2. Relatively mild degenerative changes mainly at L4-L5 and L5-S1. No evidence for significant centr al canal stenosis. 3. Left renal mass containing macroscopic fat measuring 3.7 x 3.9 x 4 cm. No associated calcificatio ns. 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 Surgical consultation is recommended as AMLs this size can spontaneously hemorrhage. 4. Small caliber of the left common iliac vein which appears to be compressed between the lumbar spi ne and right common iliac artery. There are also ectatic collaterals along the ventral margin of the sacrum. The constellation of findings can be seen with chronic May-Thurner syndrome. Electronically signed by: CLAYTON AUSTIN MD (04/22/2021 3:47 PM) [facility]
[2021-04-22] MEDS ORDERED: oxyCODONE IR 5 MG TABLET PO ONE (16:30)
[2021-04-22] MEDS ORDERED: HYDR-2769 PO (16:34)
[2021-04-22 16:46] VITALS: BP 128/7
== END 2021-04-22 16:56 | disposition home or self-care (01) ==
LOC: ER 14:41
DX: S32.059A Unspecified fracture of fifth lumbar vertebra, initial encounter for closed fracture (principal); N28.89 Other specified disorders of kidney and ureter; E11.9 Type 2 diabetes mellitus without complications; E78.00 Pure hypercholesterolemia, unspecified; G89.29 Other chronic pain; Z90.710 Acquired absence of both cervix and uterus; Z88.1 Allergy status to other antibiotic agents; Z88.6 Allergy status to analgesic agent; Z91.041 Radiographic dye allergy status; Z88.7 Allergy status to serum and vaccine; Z88.8 Allergy status to other drugs, medicaments and biological substances; W18.39XA Other fall on same level, initial encounter; Y93.89 Activity, other specified; Y92.89 Other specified places as the place of occurrence of the external cause; Y99.8 Other external cause status
CPT/HCPCS: 72131; 99284-25

== ENCOUNTER → 2021-06-28 | Day surgery (SDC) | payer OTHER ==
[~2021-06-28] VITALS: Ht 167.6 cm; Wt 82.0 kg
[~2021-06-28] MED LIST changes: +DULA0.75 SQ; +HYDR-2769 PO; +HYDROmorphone 2 MG/ML INJ. IVP PRN; +IV RINGERS,LACTATED 1000ML 1,000 ML IV SCH; +LIDOCAINE 2% PF 5 ML VIAL. ONE; +MORPHINE SULFATE 2 MG/ML INJ. IVP PRN; +PROCHLORPERAZINE 10 MG/2 ML VIAL. IVP PRN; +PROPOFOL 10 MG/ML (20ML) VIAL. IV ONE; +SITA1TAB11 PO; +TRAM100T10 PO; -TRAM100T2 PO; +fentaNYL PF VIAL 100 MCG/2 ML VIAL IVP PRN
[2021-06-28 06:23] VITALS: BP 131/61
[2021-06-28 07:43] VITALS: BP 152/80
== END | disposition home or self-care (01) ==
LOC: ENDOS 06:12
PROVIDERS: ATTEND Internal Medicine Gastroenterology
DX: R11.2 Nausea with vomiting, unspecified (principal); R10.13 Epigastric pain; K29.50 Unspecified chronic gastritis without bleeding; K31.89 Other diseases of stomach and duodenum; J45.909 Unspecified asthma, uncomplicated; M19.90 Unspecified osteoarthritis, unspecified site; E11.9 Type 2 diabetes mellitus without complications; F32.9 Major depressive disorder, single episode, unspecified; Z79.4 Long term (current) use of insulin; Z79.899 Other long term (current) drug therapy; Z98.890 Other specified postprocedural states; Z72.89 Other problems related to lifestyle; Z88.1 Allergy status to other antibiotic agents; Z88.8 Allergy status to other drugs, medicaments and biological substances
CPT/HCPCS: 43235; J2704